=== PATIENT | male | born 1955 | race Caucasian/White ===

== ENCOUNTER 2018-05-01 12:56 | Observation (INO) | payer MEDICARE ==
[2018-05-01] MEDS ORDERED: ISOVUE-370 76%-LOCM 1 ML ONE (13:35)
[2018-05-01 13:52] LABS: #Eosinphils 0.2 thou/uL (0.0-0.7); #Lymphocytes 1.1 thou/uL (1.20-3.40); #Monocytes 0.5 thou/uL (0.11-0.59); %Basophils 0.7 % (0.0-1.0); %Eosinophils 3.6 % (0.0-10.0); %Lymphocytes 19.3 % (21.0-51.0); %Neutrophils 67.4 % (42.0-75.0); Hemoglobin 12.9 g/dL (14.0-18.0); Mean Corpuscular HGB CONC 35.6 g/dL (32.0-36.0); Mean Corpuscular Hemoglobin 36.5 pg (27.0-31.0); Mean Platelet Volume 6.9 fL (7.4-10.4); Platelet Count 140 thou/uL (130-400); RBC Distribution Width 12.8 % (11.5-14.5); Red Blood Cell (RBC) Count 3.53 mill/uL (4.70-6.10); White Blood Cell (WBC) Count 5.9 thou/uL (4.8-10.8)
--- NOTE | 2018-05-01 14:01 | RAD ---
RADIOGRAPH CHEST 1 VIEW: DATE: 05/01/28. TIME: 12:35 p.m. HISTORY: A 63-year-old male status post acute chest trauma from fall. FINDINGS: The thoracic aorta is tortuous and ectatic. There is no evidence of air space density, pneumothorax, or pulmonary edema. The lateral costophrenic angles are sharp. There is a large number of bilatera l posterior element screws, plus 2 ACDF plates and screws, in the cervical spine. IMPRESSION: 1) No acute pulmonary findings. 2) Ectasia of thoracic aorta. 3) Extensive cervical spine metallic hardware. syeda Echavarria POS: [facility]
[2018-05-01 14:10] LABS: ALT (SGPT) 20 U/L (8-55); AST (SGOT) 15 U/L (5-34); Albumin 3.6 g/dL (3.4-4.8); Alkaline Phosphatase 95 U/L (40-150); Anion Gap 13 mmol/L (10-20); BUN (Urea Nitrogen) 23 mg/dL (8.4-25.7); Bilirubin, Total 0.7 mg/dL (0.2-1.2); CK (CPK) 103 U/L (30-200); Calc. Creatinine Clearance 0 mL/min (70-130); Calcium 8.6 mg/dL (7.8-10.44); Carbon Dioxide 21 mmol/L (23-31); Chloride 107 mmol/L (98-107); Estimated GFR-MDRD 43; Globulin 2.4 g/dL (2.4-3.5); Glucose 108 mg/dL (80-115); Potassium 4.7 mmol/L (3.5-5.1); Sodium 136 mmol/L (136-145)
[2018-05-01 14:15] LABS: CKMB 1.2 ng/mL (0-6.6); Troponin I Less than 0.010 ng/mL (< 0.028)
[2018-05-01 14:17] LABS: Acetaminophen Less than 6.0 mcg/mL (10.0-30.0); Alcohol Less than 10 mg/dL (Less than 10); Salicylate Less than 8.0 mg/dL (15.0-30.0)
[2018-05-01 14:28] LABS: Bilirubin Negative (Negative); Blood, Urine Negative (Negative); Clarity CLOUDY (Clear); Glucose, Urine (Dipstick) Negative (Negative); Leukocyte Moderate (Negative); Nitrite Positive (Negative); Protein, Urine (Dipstick) Negative (Neg-Trace); Specific Gravity, Urine 1.016 (1.002-1.036); pH, Urine 5.5 (5.0-9.0)
[2018-05-01 14:30] LABS: Bacteria/HPF 4+ HPF (None Seen); Pathc Cast-AUWi Flag 1.16 (0-2.49); Squamous Epithelial None Seen HPF (0-3); WBC/HPF 21-50 HPF (0-3)
[2018-05-01 14:32] LABS: Hyaline Casts/LPF 0-3 HYALINE CAST LPF (0-3 Hyaline)
[2018-05-01 14:48] LABS: Amphetamine Not Detected (NotDetected); Barbiturates Screen Not Detected (NotDetected); Benzodiazepine Screen Detected (NotDetected); Cocaine Metabolite Screen Not Detected (NotDetected); Medtox Control Line Valid? VALID (VALID); Medtox Reader # READER 1; Methadone Not Detected (NotDetected); Methamphetamine Not Detected (NotDetected); Opiate Screen Detected (NotDetected); Oxycodone Screen Not Detected (NotDetected); Phencyclidine (PCP) Not Detected (NotDetected); THC/Cannabinoid Screen Detected (NotDetected); Tricyclic Screen Not Detected (NotDetected)
[2018-05-01] MEDS ORDERED: cefTRIAXone\\ROCEPHIN 1 GM VIAL ONE (15:00)
--- NOTE | 2018-05-01 15:06 | CT ---
CT HEAD: Date: 05-01-18 Comparison: 01-24-15 History: Syncope. Fall. Technique: Serial axial CT imaging at 5 mm intervals from the vertex through the skull base without c ontrast. FINDINGS: There is mild mucosal thickening involving the frontal sinus on the right in the anterior ethmoid air cells. There is no displaced calvarial fracture. There is no intracranial hemorrhage, midline shift, mass effect or ventricular enlargement. IMPRESSION: No acute findings. POS: [facility]
--- NOTE | 2018-05-01 15:11 | CT ---
CERVICAL SPINE CT WITHOUT CONTRAST: DATE: 05/01/18. COMPARISON: 05/18/17. HISTORY: Fall, trauma, pain. TECHNIQUE: Serial axial CT imaging is obtained at 2.5 mm intervals from the skull base through the lung apices w ithout contrast. Coronal and sagittal reformatted imaging obtained. FINDINGS: The imaged lung apices are unremarkable. There is extensive postoperative hardware associated with the cervical spine. This includes anterior diskectomy and fusion hardware at C3-4/C4-5 as well as anterior diskectomy and fusion hardware at C6 -7. There is posterior fusion hardware with multilevel pedicle screws as well as vertically oriented inferior locking rods extending from the C4 level through the C7 level. The occipital condyles, the dens, the craniocervical junction, and the cervicothoracic junction demon strate no acute abnormality. The c1 ring is intact. C2-3: Bilateral facet and uncovertebral osteophyte formation, left greater than right. Moderate lef t neural foraminal stenosis. C3-4: Prominent facet and uncovertebral osteophyte formation on the left with severe left neural for aminal stenosis. No osseous cause of significant central canal or right neural foraminal stenosis. C4-5: Bilateral facet and uncovertebral osteophyte formation, left greater than right. Mild left ne ural foraminal stenosis. No osseous cause of significant central canal or right neural foraminal crow nosis. C5-6: No osseous cause of significant central canal or neural foraminal stenosis. C6-7: The patient appears status post fasciectomy on the left, stable. No osseous cause of signific ant central canal or neural foraminal stenosis. C7-T1: No osseous cause of significant central canal or neural foraminal stenosis. There is facet joint fusion bilaterally at the cervicothoracic junction. There is no displaced fracture or evidence of dislocation. No discrete lytic or blastic bone lesion. IMPRESSION: Extensive multilevel postoperative and degenerative change noted within the cervical spine. No acute osseous abnormality is evident. POS: [facility]
--- NOTE | 2018-05-01 15:18 | CT ---
ABDOMEN CT WITH COTNRAST PELVIC CT WITH CONTRAST LIMITED CT OF THE LUMBAR SPINE: HISTORY: Status post fall. The patient reports abdominal pain. COMPARISON: None. FINDINGS: ABDOMEN CT: Lung bases are clear. Heart size is normal. There are pulmonary calcifications. The visualized aor ta has a normal caliber. There is atherosclerosis with eccentric thrombus formation. There is short -segment moderate stenosis involving the infrarenal abdominal aorta. Symmetric attenuation of the ps oas muscles. No gastrohepatic, retrocrural, or periportal lymphadenopathy. Portal vein and gallbladder are unremarkable. There is a hypodensity in the right hepatic lobe measuring 5 mm. The lesion is too small to characte rize but is statistically favored to be a cyst. A similar-appearing lesion in the left hepatic lobe is noted. Spleen, pancreas, and adrenal glands have appropriate enhancement. There is no CT evidenc e of solid organ injury. There is no fluid in Morison's pouch. No gastrohepatic, retrocrural, or periportal lymphadenopathy. No mesenteric mass, lymphadenopathy, free air, or free fluid. Limited evaluation of the alimentary canal by the lack of oral contrast. Gastric mucosa, duodenum, a nd multiple normal-caliber small bowel loops are identified. There is evidence of previous right hem icolectomy. No evidence of bowel obstruction. PELVIC CT: Decompressed urinary bladder. No mass, lymphadenopathy, free air, or free fluid. The visualized bony ribs are intact. The visualized bony pelvis also intact. No evidence of a hip f racture or pelvic bone fracture. LIMITED CT OF THE LUMBAR SPINE: No fracture. Normal alignment. IMPRESSION: No posttraumatic change in the abdomen or pelvis. Additional findings as above. POS: [facility]
[2018-05-01 18:52] VITALS: BMI 29.0
[2018-05-01] MEDS ORDERED: Ondansetron ODT 4 MG TAB SL PRN (19:04)
[2018-05-01] MEDS ORDERED: Ondansetron HCl/PF 4 MG/2 ML Vial IVP PRN (19:04)
[2018-05-01] MEDS ORDERED: traMADol HCl 50 MG TAB PO PRN (21:16)
[2018-05-01] MEDS ORDERED: Carvedilol 25 MG TAB PO SCH (22:15)
[2018-05-01] MEDS ORDERED: Baclofen 10 MG TAB PO SCH (22:15)
[2018-05-01] MEDS ORDERED: Atorvastatin Calcium 40 MG TAB PO SCH (22:15)
[2018-05-01] MEDS ORDERED: ALPRAZolam 1 MG TAB PO SCH (22:15)
[2018-05-01] MEDS ORDERED: Lisinopril 20 MG TAB PO SCH (22:15)
[2018-05-01] MEDS ORDERED: Gabapentin 400 MG CAP PO SCH (22:15)
[2018-05-02] MEDS ORDERED: HYDROcodone/Acetaminophen 5/325 mg Tablet PO PRN ×2 (00:17→00:18)
[2018-05-02] MEDS: Baclofen 10 MG TAB PO SCH ×2 (03:22→14:10)
[2018-05-02 05:57] LABS: #Basophils 0.1 thou/uL (0.0-0.2); #Eosinphils 0.2 thou/uL (0.0-0.7); #Lymphocytes 1.7 thou/uL (1.20-3.40); #Monocytes 0.7 thou/uL (0.11-0.59); #Neutrophils 3.1 thou/uL (1.40-6.50); %Basophils 1.1 % (0.0-1.0); %Eosinophils 3.9 % (0.0-10.0); %Neutrophils 53.1 % (42.0-75.0); Hemoglobin 12.7 g/dL (14.0-18.0); Mean Corpuscular HGB CONC 34.1 g/dL (32.0-36.0); Mean Platelet Volume 7.1 fL (7.4-10.4); Platelet Count 141 thou/uL (130-400); RBC Distribution Width 12.8 % (11.5-14.5); Red Blood Cell (RBC) Count 3.63 mill/uL (4.70-6.10); White Blood Cell (WBC) Count 5.8 thou/uL (4.8-10.8)
[2018-05-02 06:12] LABS: Anion Gap 10 mmol/L (10-20); BUN (Urea Nitrogen) 18 mg/dL (8.4-25.7); Calc. Creatinine Clearance 99 mL/min (70-130); Calcium 8.7 mg/dL (7.8-10.44); Carbon Dioxide 23 mmol/L (23-31); Cardiac Risk 4.3 (Less than 4.5); Chloride 110 mmol/L (98-107); Cholesterol 139 mg/dl (< 200 Desired); Estimated GFR-MDRD 76; Glucose 84 mg/dL (80-115); HDL Cholesterol 32 mg/dL (>60 Neg Risk); LDL Cholesterol, Calculated 78 mg/dL; Potassium 4.5 mmol/L (3.5-5.1); Sodium 138 mmol/L (136-145); Triglycerides 147 mg/dL (Less than 150)
[2018-05-02] MEDS ORDERED: Carvedilol 25 MG TAB PO SCH (08:00)
[2018-05-02] MEDS: ALPRAZolam 1 MG TAB PO SCH ×2 (08:06→14:10)
[2018-05-02] MEDS: Gabapentin 400 MG CAP PO SCH ×2 (08:07→14:09)
[2018-05-02] MEDS ORDERED: Clopidogrel Bisulfate 75 MG TAB PO SCH (09:00)
[2018-05-02] MEDS ORDERED: Bupropion 150 MG XL TAB PO SCH (09:00)
[2018-05-02] MEDS ORDERED: Aspirin 81 mg Enteric Coated Tablet PO SCH (09:00)
[2018-05-02] MEDS ORDERED: Lisinopril 20 MG TAB PO SCH (09:00)
[2018-05-02] MEDS ORDERED: Tamsulosin HCl 0.4 MG CAP PO SCH (09:00)
[2018-05-02] MEDS ORDERED: Enoxaparin Sodium 30 MG/0.3 ML SYRINGE SC SCH (09:00)
[2018-05-02] MEDS ORDERED: DULoxetine 30 MG CAP PO SCH (09:00)
--- NOTE | 2018-05-02 09:50 | ULT ---
CAROTID DUPLEX SONOGRAM: History: Syncope. Vascular disease. FINDINGS: Right: Scattered plaque. Color and spectral doppler evaluation, peak systolic velocity of 60 cm/sec, and IC to CC ratio of 0.7 suggests no hemodynamically significant stenosis within the extracranial ri ght ICA. Left: Scattered plaque. Color and spectral doppler evaluation, peak systolic velocity of 67 cm/sec, a nd IC to CC ratio of 1.0 suggests no hemodynamically significant stenosis within the extracranial lef t ICA. Antegrade flow within the vertebral artery. IMPRESSION: Atherosclerosis. No sonographic evidence of significant extracranial ICA stenosis. POS: [facility]
[2018-05-02 15:44] VITALS: BP 117/69; TEMP 97.8
[2018-05-02] MEDS ORDERED: Atorvastatin Calcium 40 MG TAB PO SCH (21:00)
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
--- NOTE | 2018-05-11 16:56 | EKG ---
Test Reason : Blood Pressure : / mmHG Vent. Rate : 074 BPM Atrial Rate : 074 BPM P-R Int : 140 ms QRS Dur : 100 ms QT Int : 382 ms P-R-T Axes : 049 044 -01 degrees QTc Int : 424 ms Normal sinus rhythm Inferior infarct , age undetermined Abnormal ECG Confirmed by HUE JAIME DO ([id number]), editor in chief newspaper RIAN JIMENES ([id number]) on 05/11/2018 4:56:18 PM Referred By: Confirmed By:HUE JAIME DO
== END 2018-05-02 17:03 | disposition home or self-care (01) ==
LOC: ERS 12:56 → 2SW 15:30
PROVIDERS: ADMIT Internal Medicine; ATTEND Internal Medicine
DX: R55 Syncope and collapse (principal); I25.10 Atherosclerotic heart disease of native coronary artery without angina pectoris; I11.0 Hypertensive heart disease with heart failure; I50.9 Heart failure, unspecified; E78.5 Hyperlipidemia, unspecified; N17.9 Acute kidney failure, unspecified; Z85.038 Personal history of other malignant neoplasm of large intestine; Z79.02 Long term (current) use of antithrombotics/antiplatelets; Z79.82 Long term (current) use of aspirin; Z79.899 Other long term (current) drug therapy; Z98.1 Arthrodesis status; Z90.49 Acquired absence of other specified parts of digestive tract; Z98.890 Other specified postprocedural states; W19.XXXA Unspecified fall, initial encounter
CPT/HCPCS: 70450; 71045; 72125; 74177; 80048; 80053; 80061; 80306; 80307; 81001; 82550; 82553; 84484; 85025 ×2; 87077; 87086; 87186; 93005; 93306; 93880; 96361; 96365; 96372; 97139; 99285; G0378 ×2; 36415; 81015; J0696; J1650

== ENCOUNTER 2019-12-03 07:14 | Day surgery (SDC) | payer MEDICARE ==
[2019-12-02 15:46] VITALS: BMI 30.5
[~2019-12-03 07:14] MED LIST: FLU VACC QS2019-20(6MOS UP)/PF 60 MCG/0.5 ML SYRINGE IM ONE
[2019-12-03 08:12] VITALS: BP 123/76; TEMP 97.6
--- NOTE | 2019-12-03 09:23 | RAD ---
EXAM: 3 views of the cervical spine HISTORY: Spondylosis status post cervical fusion COMPARISON: 07/29/2013 FINDINGS: 3 Lateral views of the cervical spine shows the patient is status post anterior fusion of C 3-C5 with a plate and screws. The patient is status post posterior fusion of C4 through the upper thoracic spine with bilateral pedicle screws. The patient is also status post anterior fusion of C6 a nd C7 with a plate and screws. The lower aspect of the posterior hardware is difficult to see with patient's shoulders in place. No prevertebral soft tissue swelling is seen. There is normal height of the vertebral bodies without fracture or subluxation. No perihardware lucency is seen. Alignment is unchanged with flexion and extension. IMPRESSION: Postsurgical changes of cervical spine with unchanged alignment with bending.
--- NOTE | 2019-12-03 09:37 | RAD ---
Exam: 3 views lumbar spine HISTORY: Spondylolysis. COMPARISON: none FINDINGS: Upright Improvement Specialist lateral neutral, lateral flexion and lateral extension views demonstrate 5 ivette mbar type vertebra. Mild loss of disc space at L5-S1. Osteophyte formation at L2-L3 and L3-L4. Preserved vertebral body heights. No fractures. No spondylolisthesis. No spondylolysis. Atherosclerosis of the aorta and iliac arteries is noted IMPRESSION: No significant spondylolisthesis. No abnormal motion upon flexion or extension.
--- NOTE | 2019-12-03 09:47 | RAD ---
EXAM: CERVICAL AND THORACIC AND LUMBAR MYELOGRAM: HISTORY: Failed back surgery. Radiculopathy. EXPOSURE: 0.4 minutes, 80.3 microgray/M2. FINDINGS: Senior Qa Tester images: Cervical spine 2 views: Extensive anterior and posterior fusion changes. Multilevel fac et arthropathy. Soft tissue neck calcifications are noted. 2 views thoracic spine: Multilevel degenerative change of the upper to mid thoracic spine. No fractur es or malalignment. AP lumbar spine: 5 lumbar type vertebra. No fractures or malalignment. Successful lumbar puncture. A total of 9 mL of Isovue-M 300 contrast was administered intrathecally a t the L2-L3 level. TECHNIQUE: Consent obtained to perform a lumbar puncture for cervical, thoracic and lumbar myelogram. Patient's back was evaluated. The L2-L3 level was deemed appropriate. Skin was prepped and draped in a sterile fashion. 1% lidocaine, buffered with sodium bicarbonate was used for local anesthesia. Under fluoroscopic guidance, a 22-gauge spinal needle was advanced into the CSF space. There is prompt flow of clear CSF to the hub of the needle. Via a short tubing catheter, total of 9 mL of Isovue-M 30 0 contrast was administered intrathecally. Patient tolerated the procedure well. No immediate or postprocedure complications. IMPRESSION: Successful lumbar puncture for cervical, thoracic and lumbar myelogram. Transcribed Date/Time: 12/03/2019 10:28 AM
--- NOTE | 2019-12-03 10:31 | CT ---
Exam: Post myelogram cervical spine CT HISTORY:Failed cervical surgery. Radiculopathy. Spinal stenosis. COMPARISON: 10/07/[address] is performed in the axial length. Three-dimensional reformatted images are submitte d FINDINGS: No craniocervical dissociation. Appropriate alignment of the lateral masses of C1 and C2. Cervical sp ine vertebral body height is maintained. There is no fracture. Appropriate alignment of the lateral masses of C1 and C2. Appropriate alignment of the facets. Extensive anterior fusion plate with transv ertebral body screws bridging C3-C5. Second anterior fusion plate with transvertebral body screws at C6-C7. Disc prosthesis at C3-C4, C4-C5, and C6-C7. There are posterior fusion changes starting at C4 and involving the posterior elements at C4, C5, C6, C7, T1 and T2 bilaterally. Associated vertical stabilization rods. With regards to fusion hardware, no perihardware lucency. C2-C3: No significant central canal stenosis. Mild right neural foraminal narrowing due to uncoverteb ral and facet hypertrophy. Moderate to severe left neural foraminal narrowing due to uncovertebral and facet hypertrophy. C3-C4: Disc prosthesis. Broad-based osteophyte ridge. No significant central canal stenosis. Moderate to severe right and severe left foraminal narrowing due to uncovertebral and facet hypertrophy. C4-C5:Osteophyte ridge. No significant central canal stenosis. Moderate bilateral foraminal narrowing due to uncovertebral hypertrophy. C5-C6: No evidence of high-grade central canal stenosis. Bilaterally, neural foramina are patent. C6-C7:Broad-based osteophyte ridge. There does appear to be some mass effect upon the ventral thecal sac and ventral cord. At least mild central canal stenosis. Mild bilateral neural foraminal narrowing. There appears to be decompression laminectomy changes at C6-C7 disc space. C7-T1: No significant central canal stenosis or significant neural foraminal narrowing. IMPRESSION: 1.Extensive anterior and posterior fusion changes as described above. No perihardware lucency. 2. No evidence of high-grade central canal stenosis. 3. Varying degrees of significant neural foraminal narrowing as described above. Transcribed Date/Time: 12/03/2019 10:35 AM
--- NOTE | 2019-12-03 10:34 | CT ---
Exam: Postmyelogram thoracic spine CT HISTORY: Failed cervical and lumbar surgery. Spinal stenosis. Radiculopathy. COMPARISON: None. FINDINGS: Thoracic spine vertebral body heights are maintained. There is no fracture. No spondylolisthesis or s pondylolysis. Visualized mediastinum, lung parenchyma and solid organs do not demonstrate any acute abnormality. In completely evaluated right renal cyst. Chronic changes in the lung parenchyma are noted. Atherosclerosis of a nonaneurysmal aorta. Conus medullaris terminates at the T12-L1 disc space. Throughout the thoracic spine, neural foramina are patent. T4-T5: Mild central canal stenosis secondary to a minimal disc herniation. T7-T8: Small left paracentral disc herniation abuts the thecal sac. Minimal central canal stenosis. T9-T10: Broad-based disc bulge abuts the thecal sac. Mild central canal stenosis. IMPRESSION: No significant central canal stenosis or significant neural foraminal narrowing of the thoracic spine . Degenerative changes as described above. Transcribed Date/Time: 12/03/2019 10:55 AM
--- NOTE | 2019-12-03 10:41 | CT ---
Exam: Postmyelogram lumbar spine CT HISTORY: Failed surgery. Lumbar radiculopathy. Spinal stenosis. FINDINGS: 5 lumbar type vertebra. Lumbar spine vertebral body height is maintained. No fracture. No spondylolis thesis. No spondylolysis. Incompletely evaluated right renal cysts. Atherosclerosis of the infrarenal abdominal aorta. No peria ortic fat stranding. Symmetric attenuation of the psoas muscles. Visualized sacrum and bony pelvis are intact. Vacuum joint phenomenon involving both sacroiliac joint s Conus medullaris terminates at the T12-L1 disc space. T11-T12 and T12-L1: No significant central canal stenosis or significant neural foraminal narrowing L1-L2: No significant canal stenosis or significant neural foraminal narrowing. L2-L3: Mild loss of disc space height. Broad-based disc bulge minimally indents the ventral thecal sa c. Minimal central canal stenosis. Right neural foramen is patent. Mild left foraminal narrowing due to disc material. L3-L4: No significant loss of disc space height. Broad-based disc bulge abuts the thecal sac. Minimal central canal stenosis. Mild bilateral foraminal narrowing due to disc material. L4-L5: Broad-based disc bulge abuts the thecal sac. Encroachment upon both subarticular zones without significant mass effect or obscuration of either traversing L5 nerve root. Mild to moderate right and mild left neural foraminal narrowing. L5-S1: Vacuum disc phenomenon. Broad-based disc bulge with a central disc herniation. There is encroa chment upon the left and right subarticular zone. Mass effect without obscuration of either traversing S1 nerve root. No significant stenosis of the thecal sac. Moderate to severe bilateral erick ral foraminal narrowing. IMPRESSION: 1. No significant central canal stenosis throughout the lumbar spine. 2. Encroachment upon the subarticular zone at L4-L5 and L5-S1. No significant obscuration of either t raversing L5 or S1 nerve root. 3. Moderate to severe bilateral neural foraminal narrowing at L5-S1. Transcribed Date/Time: 12/03/2019 10:58 AM
== END 2019-12-03 10:55 | disposition home or self-care (01) ==
LOC: RAD 07:14
PROVIDERS: ATTEND Neurological Surgery
DX: M47.22 Other spondylosis with radiculopathy, cervical region (principal); M48.061 Spinal stenosis, lumbar region without neurogenic claudication; M43.06 Spondylolysis, lumbar region; M54.16 Radiculopathy, lumbar region; G89.29 Other chronic pain; J44.9 Chronic obstructive pulmonary disease, unspecified; I10 Essential (primary) hypertension; I25.10 Atherosclerotic heart disease of native coronary artery without angina pectoris; F41.9 Anxiety disorder, unspecified; F32.9 Major depressive disorder, single episode, unspecified; F17.200 Nicotine dependence, unspecified, uncomplicated; Z95.5 Presence of coronary angioplasty implant and graft; Z79.82 Long term (current) use of aspirin; Z79.899 Other long term (current) drug therapy
CPT/HCPCS: 62305; 72040; 72100; 72126; 72129; 72132

== ENCOUNTER 2022-02-27 16:06 | Outpatient (CLI) | payer MEDICARE ==
[2022-02-27 16:42] LABS: #Basophils 0.1 10x3/uL (0.0-0.2); #Eosinphils 0.2 10x3/uL (0.0-0.5); #Monocytes 0.7 10x3/uL (0.0-1.1); #Neutrophils 2.4 10x3/uL (1.5-8.4); %Basophils 1.4 % (0.0-2.0); %Eosinophils 4.1 % (0.0-6.0); %Lymphocytes 39.4 % (18.0-47.0); %Monocytes 11.9 % (0.0-10.0); Mean Corpuscular HGB CONC 35.9 g/dL (32.0-36.0); Mean Corpuscular Hemoglobin 36.2 pg (27.0-33.0); Mean Corpuscular Volume 100.8 fl (81.2-95.1); Mean Platelet Volume 9.6 fl (7.4-10.4); Platelet Count 166 10x3/uL (150-450); RBC Distribution Width 14.4 % (11.5-14.5); Red Blood Cell (RBC) Count 3.87 10x6/uL (4.32-5.72); White Blood Cell (WBC) Count 5.6 10x3/uL (3.5-10.5)
[2022-02-27 17:10] LABS: Anion Gap 16 mmol/L (10-20); BUN (Urea Nitrogen) 16 mg/dL (8.4-25.7); Calc. Creatinine Clearance 0 mL/min (70-130); Calcium 9.1 mg/dL (7.8-10.44); Carbon Dioxide 25 mmol/L (23-31); Chloride 106 mmol/L (98-107); Glucose 109 mg/dL (80-115); Potassium 3.8 mmol/L (3.5-5.1); Sodium 143 mmol/L (136-145)
== END 2022-02-27 16:07 | disposition home or self-care (01) ==
LOC: LABBT 16:06
PROVIDERS: ATTEND Orthopaedic Surgery
DX: Z01.812 Encounter for preprocedural laboratory examination (principal); G56.01 Carpal tunnel syndrome, right upper limb; Z20.822 Contact with and (suspected) exposure to COVID-19
CPT/HCPCS: 80048; 85025; U0003; U0005

== ENCOUNTER 2022-03-02 08:15 | Day surgery (SDC) | payer MEDICARE ==
[2022-02-28 12:06] VITALS: BMI 27.2
[2022-03-02 09:29] LABS: Prothrombin Time 13.1 sec (12.0-14.7)
[2022-03-02] MEDS ORDERED: Lidocaine 1% w/Epinephrine 1:100K 30 ML VIAL ONE (10:56)
[2022-03-02] MEDS ORDERED: fentaNYL Citrate/PF 100 MCG/2 ML SYRINGE ONE (10:57)
[2022-03-02] MEDS ORDERED: Midazolam HCl 2 mg/2 ml Vial ONE (10:58)
[2022-03-02] MEDS ORDERED: Sodium Chloride 0.9% 100 ML ONE (11:06)
[2022-03-02] MEDS ORDERED: CEFAZOLIN 2 GM VIAL ONE (11:06)
[2022-03-02] MEDS ORDERED: Fentanyl 100 MCG/2 ML VIAL ONE ×2 (12:14→12:48)
[2022-03-02] MEDS ORDERED: HYDROcodone/Acetaminophen 5/325 mg Tablet ONE (13:26)
== END 2022-03-02 14:33 | disposition home or self-care (01) ==
LOC: SDC 08:15
PROVIDERS: ATTEND Orthopaedic Surgery
PROC: 01N40ZZ Release Ulnar Nerve, Open Approach (ICD-10-PCS; principal; 2022-03-02)
DX: G56.21 Lesion of ulnar nerve, right upper limb (principal); F17.210 Nicotine dependence, cigarettes, uncomplicated; I25.10 Atherosclerotic heart disease of native coronary artery without angina pectoris; E78.5 Hyperlipidemia, unspecified; I50.22 Chronic systolic (congestive) heart failure; Z79.02 Long term (current) use of antithrombotics/antiplatelets; Z79.82 Long term (current) use of aspirin; Z79.899 Other long term (current) drug therapy; Z88.8 Allergy status to other drugs, medicaments and biological substances
CPT/HCPCS: 85610; J0690; J2250; J3010; J3490

== ENCOUNTER 2025-05-25 13:33 | Emergency (ER) | payer MEDICARE, OTHER ==
[2025-05-25] MEDS ORDERED: Dexamethasone 10 MG/ML VIAL ONE (15:34)
[2025-05-25] MEDS ORDERED: Cyclobenzaprine 10 MG TAB ONE (15:34)
== END 2025-05-25 18:43 | disposition home or self-care (01) ==
LOC: ERS 13:33
DX: M54.42 Lumbago with sciatica, left side (principal); I71.43 Infrarenal abdominal aortic aneurysm, without rupture; I11.0 Hypertensive heart disease with heart failure; I50.9 Heart failure, unspecified; F17.210 Nicotine dependence, cigarettes, uncomplicated; Z95.9 Presence of cardiac and vascular implant and graft, unspecified
CPT/HCPCS: 72131; J1100